=== PATIENT | female | born 1970 | race American Indian/Alaskan Native ===

== ENCOUNTER 2018-12-04 10:32 | Outpatient (CLI) | payer MEDICARE ==
--- NOTE | 2018-12-04 14:58 | Ultrasound Report ---
LIMITED BILATERAL BREAST/AXILLARY ULTRASOUND HISTORY: History of lupus and axillary lymphadenopathy. Abnormal lymph nodes on mammogram. She has peace d removal of 2 benign left axillary lymph nodes. COMPARISON: None. FINDINGS: Focused sonographic evaluation upon the right axilla demonstrates several lymph nodes with minimal central fat. The largest measures 1.4 x 0.8 cm. Focused sonographic evaluation upon the left axilla demonstrates 2 axillary lymph nodes with minimal or absent central fat. The larger measures 2.1 cm and the smaller measures 2.0 cm. IMPRESSION Bilateral benign axillary lymph nodes. If the clinical examination remains stable, the patient should continue an annual screening mammograp hic evaluation schedule. BIRADS 2: Benign Signer Name: Lee Vega MD Signed: 12/04/2018 2:53 PM Workstation Name: [id number]
== END 2018-12-04 10:33 | disposition home or self-care (01) ==
LOC: SPVWC 10:32
PROVIDERS: ATTEND Surgery
DX: R59.0 Localized enlarged lymph nodes (principal)

== ENCOUNTER 2019-04-16 09:50 | Outpatient (CLI) | payer MEDICARE ==
--- NOTE | 2019-04-16 11:37 | Ultrasound Report ---
BILATERAL DIGITAL DIAGNOSTIC MAMMOGRAM WITH CAD 04/16/2019 BILATERAL LIMITED BREAST ULTRASOUND INDICATION: History of lupus and bilateral axillary lymphadenopathy. History of benign left axillary lymph node biopsy. TECHNIQUE: Digital bilateral mammographic imaging was performed. Limited ultrasound was performed. T his examination was interpreted with the benefit of Computer-Aided Detection (CAD) analysis. COMPARISON: 12/04/2018 [facility] bilateral axillary ultrasound and earlier mammograms and ultraso unds from [facility]. FINDINGS: Breast Density: There are scattered areas of fibroglandular density. MAMMOGRAPHIC FINDINGS: There is no evidence of dominant mass, suspicious calcifications or architectu ral distortion in either breast. Bilateral axillary lymph nodes are not significantly changed compare d to previous exams. ULTRASOUND FINDINGS: Lymph node with minimal central fat measuring 1.8 cm and several smaller lymph n odes. Ultrasound of the left axilla demonstrated a dominant lymph node with minimal central fat measu ring 2 cm and several smaller lymph nodes. IMPRESSION: Negative mammogram and stable bilateral benign axillary lymphadenopathy. Follow up recommendation: Routine yearly BI-RADS Category 2: Benign. A "normal" or negative report should not discourage follow up or biopsy of a clinically significant f inding. A written summary of these findings will be mailed to the patient. The patient will be entered into a mammography reporting system which will generate a reminder letter for the patient's next appointmen t at the appropriate interval. According to the [employer], yearly mammograms are recommended starting at age 40 and continuing as long as a woman is in good health. Breast MRI is recommended for women with an [place] roximately 20-25% or greater lifetime risk of breast cancer, including women with a strong family his tory of breast or ovarian cancer and women who have been treated for Hodgkin's disease. Signer Name: Lee Vega MD Signed: 04/16/2019 11:33 AM Workstation Name: [id number]
== END 2019-04-16 09:51 | disposition home or self-care (01) ==
LOC: SPVWC 09:50
PROVIDERS: ATTEND Surgery
DX: R59.1 Generalized enlarged lymph nodes (principal)
CPT/HCPCS: 77066